=== PATIENT | female | born 1965 | race Caucasian/White ===

== ENCOUNTER 2022-05-17 05:08 | Observation (INO) ==
[2022-05-17 05:41] LABS: BASOPHILS % (AUTO) 0.2 % (0.0-3.0); EOSINOPHILS # (AUTO) 0.2 K/ul (0.0-0.7); EOSINOPHILS % (AUTO) 1.1 % (0.0-7.0); HEMATOCRIT 37.2 % (37.0-47.0); HEMOGLOBIN 12.8 g/dl (12.0-16.0); IMMATURE GRANULOCYTE # (AUTO) 0.1 (0.0-1.0); IMMATURE GRANULOCYTE % (AUTO) 0.8 % (0.0-5.0); LYMPHOCYTES # (AUTO) 0.6 K/uL (0.60-3.4); LYMPHOCYTES % (AUTO) 3.4 (10.0-50.0); MEAN CORPUSCULAR HEMOGLOBIN 29.4 pg (27.0-31.0); MEAN CORPUSCULAR HGB CONC 34.4 (31.8-35.4); MEAN CORPUSCULAR VOLUME 85.3 fl (81.0-99.0); MONOCYTES # (AUTO) 0.6 K/uL (0.4-2.0); MONOCYTES % (AUTO) 3.4 (0-10); NEUTROPHILS # (AUTO) 16.9 K/ul (2.0-6.9); NEUTROPHILS % (AUTO) 91.1 % (42.2-75.2); PLATELET COUNT 265 10^3/uL (140-440); RDW COEFFICIENT OF VARIATION 13.4 % (11.6-14.8); RED BLOOD COUNT 4.36 10^6/ul (4.20-5.40); WHITE BLOOD COUNT 18.47 K/ul (4.6-10.2)
--- NOTE | 2022-05-17 05:43 | ED.PDOC ---
General <DARRICK RODRIGUEZ MD - Last Filed: 05/17/22 05:59> ED Provider: Dr. DARRICK RODRIGUEZ MD Chief Complaint: Abdominal Pain Stated Complaint: Patient presents with a three day history of LLQ abdominal pain. The pain is constant and has progressively worsened. It is a dull, aching pain worsened by movement. It does not radiate. She rates the pain at an 8. Patient has also had fever to 103, nausea, dysuria, frequency and urgency. She had a normal bowel movement yesterday. Denies emesis, diarrhea, hematochezia or hematuria. She does have a history of diverticulitis. Time Seen by Provider: 05/17/22 05:43 Mode of Arrival: Walk-In Information Source: Patient Primary Care Provider: JOSH NOVA Nursing and Triage Documentation Reviewed and Agree: Yes Does patient meet sepsis criteria?: No System Inflammatory Response Syndrome: Not Applicable Sepsis Protocol: For patient's 13 years and over: Temp is 96.8 and below OR 101 and greater Pulse >90 BPM Resp >20/minute Acutely Altered Mental Status Are patient's symptoms suggestive of a new infection, such as: -Pneumonia -Skin, Soft Tissue -Endocarditis -UTI -Bone, Joint Infection -Implantable Device -Acute Abdominal Infection -Wound Infection -Meningitis -Blood Stream Catheter Infection -Unknown <ELIZABETH NAVARRO - Last Filed: 05/17/22 16:33> Exam Limitations: No limitations GI Complaint Exam <DARRICK RODRIGUEZ MD - Last Filed: 05/17/22 05:59> Abdominal Pain Complaint/Exam Onset: Gradual Duration: three day history LLQ pain Symptoms Are: Worse Timing: Constant Initial Severity: Mild Current Severity: Severe Location of Pain: LLQ Character: Reports Dull and Aching Aggravating: Reports Movement Alleviating: Reports None Associated Signs and Symptoms: Reports Fever, Dysuria, Urinary frequency, Decreased appetite and Nausea Related History: Reports Similar episode AAA Risk Factors: Reports None Cardiac Risk Factors: Reports None Surgical Obstruction Risk Factors: Reports None Related Surgical History: Reports None Review of Systems <DARRICK RODRIGUEZ MD - Last Filed: 05/17/22 05:59> Review Of Systems Constitutional: Reports Fever Eyes: Reports No symptoms Ears, Nose, Mouth, Throat: Reports No symptoms Respiratory: Reports No symptoms Cardiac: Reports No symptoms GI: Reports Abdominal pain, Nausea and Poor appetite : Reports Dysuria, Frequency and Urgency Musculoskeletal: Reports No symptoms Skin: Reports No symptoms Neurological: Reports No symptoms Endocrine: Reports No symptoms Hematologic/Lymphatic: Reports No symptoms All Other Systems: Reviewed and Negative PFSH <DARRICK RODRIGUEZ MD - Last Filed: 05/17/22 05:59> Medical History (Updated 05/17/22 @ 10:22 by MELIDA MARTINEZ RN) Abdominal pain delivery delivered DDD (degenerative disc disease), cervical DDD (degenerative disc disease), lumbar DDD (degenerative disc disease), thoracic Diabetes Fibromyalgia Osteoarthritis UTI (urinary tract infection) Family History (Updated 05/17/22 @ 10:25 by MELIDA MARTINEZ RN) FATHER Stomach cancer Social History (Updated 05/17/22 @ 10:25 by MELIDA MARTINEZ RN) Smoking and tobacco status: Never smoker Passive smoking exposure: No Alcohol intake: never Substance use type: does not use Surgical History (Updated 05/17/22 @ 10:22 by MELIDA MARTINEZ RN) H/O spinal fusion H/O: hysterectomy History of cholecystectomy Female Reproductive History Menstrual Hx Hysterectomy: Yes Hx Tubal Ligation: Yes Physical Exam <DARRICK RODRIGUEZ MD - Last Filed: 05/17/22 05:59> Physical Exam Appearance: Reports Ill-appearing and Obese Ill-appearing: Moderate Pain Distress: Moderate Eyes: Reports Not Examined ENT: Reports Nose normal, Oropharynx normal and Dry mucosa Neck: Supple Respiratory: Reports Airway patent, Breath sounds clear and Breath sounds equal Cardiovascular: Reports No rub, No murmur and Tachycardia GI/: Reports Soft, No masses, No Organomegaly and Tender (Moderate tenderness LLQ with some guarding.) Musculoskeletal: Reports Normal strength and No edema Skin: Reports Warm and Dry Neurological: Reports Motor intact, Alert and Oriented Psychiatric: Reports Affect appropriate, Mood appropriate and Anxious <ELIZABETH NAVARRO - Last Filed: 05/17/22 16:33> Radiology Interpretation Radiology Interpretation By: Radiologist Exam Interpreted: CT Scan Xray Comments: no diverticuli or acute abdomen EKG Interpretation Time of EKG #1: 10:04 Rhythm: Sinus Ectopy: None [place]: NL ST Segment: Normal <ELIZABETH NAVARRO - Last Filed: 05/17/22 16:33> Critical Care Note Total Critical Care Time (mins): 20 Comments: discussed with prior cliniican / chart review / pt interview / pt exam / DDX - appears that rose best working dx . Pt not up to discharge / discussed observation startus for additional IV abx tx , lovenox , reassess in am . She agrees with plan . No chest pains , cough , dyspnea Course <DARRICK RODRIGUEZ MD - Last Filed: 05/17/22 05:59> Course Hematology/Chemistry: 05/17/22 05:35 05/17/22 05:35 Orders, Labs, Meds: Lab Review 05/17/22 05/17/22 05/17/22 05:20 05:35 05:35 WBC 18.47 H RBC 4.36 Hgb 12.8 Hct 37.2 MCV 85.3 MCH 29.4 MCHC 34.4 RDW Coeff of Cole 13.4 Plt Count 265 Immature Gran % (Auto) 0.8 Neut % (Auto) 91.1 H Lymph % (Auto) 3.4 L Hettinger % (Auto) 3.4 Eos % (Auto) 1.1 Baso % (Auto) 0.2 Neut # (Auto) 16.9 H Lymph # (Auto) 0.6 Hettinger # (Auto) 0.6 Eos # (Auto) 0.2 Baso # (Auto) 0.0 Immature Gran # (Auto) 0.1 Sodium 137.9 Potassium 3.98 Chloride 99.7 Carbon Dioxide 28.3 Anion Gap 13.88 BUN 25.9 H Creatinine 1.17 Estimated GFR (MDRD) 48.00 BUN/Creatinine Ratio 22.13 Glucose 149.6 H Hemoglobin A1c Lactic Acid Calcium 9.70 Total Bilirubin 0.50 AST 26.3 ALT 15.3 Alkaline Phosphatase 90.6 Total Protein 8.14 Albumin 4.49 Globulin 3.65 Albumin/Globulin Ratio 1.23 Urine Color Yellow Urine Clarity Clear Urine pH 5.5 Ur Specific [place] 1.015 Urine Protein Trace H Urine Glucose (UA) Negative Urine Ketones Negative Urine Blood Negative Urine Nitrite Positive H Urine Bilirubin Negative Urine Urobilinogen 1.0 H Ur Leukocyte Esterase 1+ H Urine Microscopic WBC 10-20 Ur Squamous Epith Cells 10-20 Urine Bacteria 2+ SARS CoV-2 RNA Rapid CAMRON 05/17/22 05/17/22 05/17/22 07:00 08:35 09:02 WBC RBC Hgb Hct MCV MCH MCHC RDW Coeff of Cole Plt Count Immature Gran % (Auto) Neut % (Auto) Lymph % (Auto) [place] % (Auto) Eos % (Auto) Baso % (Auto) Neut # (Auto) Lymph # (Auto) [place] # (Auto) Eos # (Auto) Baso # (Auto) Immature Gran # (Auto) Sodium Potassium Chloride Carbon Dioxide Anion Gap BUN Creatinine Estimated GFR (MDRD) BUN/Creatinine Ratio Glucose Hemoglobin A1c 5.79 Lactic Acid 0.89 Calcium Total Bilirubin AST ALT Alkaline Phosphatase Total Protein Albumin Globulin Albumin/Globulin Ratio Urine Color Urine Clarity Urine pH Ur Specific [place] Urine Protein Urine Glucose (UA) Urine Ketones Urine Blood Urine Nitrite Urine Bilirubin Urine Urobilinogen Ur Leukocyte Esterase Urine Microscopic WBC Ur Squamous Epith Cells Urine Bacteria SARS CoV-2 RNA Rapid CAMRON Negative Orders Category Date Time Status PLACE PATIENT OBSERVATION .TO MEDSURG (NON-MONITORED ADMISSION 05/17/22 08:43 Active BED) EKG-(ED ONLY) Stat CARDIO 05/17/22 09:33 Completed ACTIVITY .Early Mobilization for VTE Prevention CARE 05/17/22 08:43 Active BLOOD GLUCOSE MONITORING (MED/SURG) 0630,1100,1700,2100 CARE 05/17/22 08:46 Active GIVE HS SNACK 2100 CARE 05/17/22 08:46 Active INTAKE & OUTPUT Q8HR CARE 05/17/22 08:43 Active IP: INSERT SALINE LOCK ONCE CARE 05/17/22 08:43 Active NPO REMINDER: IMAGING ONCE CARE 05/17/22 06:26 Completed VITAL SIGNS Q4HR CARE 05/17/22 08:44 Active VITAL SIGNS Q8HR CARE 05/17/22 08:43 Completed ADA 1800 MARLENE. DIET DIETARY 05/17/22 Lunch Ordered HS SNACK DIETARY 05/17/22 Dinner Ordered Saline Lock [ED IV/MEDIPORT/POWERPORT] .ONCE EMERGENCY 05/17/22 05:50 Active BLOOD CULTURE (ED ONLY) Stat LAB 05/17/22 07:00 Received CBC W/ AUTO DIFF DAILY@0600 LAB 05/18/22 06:00 Ordered CBC W/ AUTO DIFF DAILY@0600 LAB 05/19/22 06:00 Ordered CBC W/ AUTO DIFF Stat LAB 05/17/22 05:35 Completed COMPREHENSIVE METABOLIC PANEL DAILY@0600 LAB 05/18/22 06:00 Ordered COMPREHENSIVE METABOLIC PANEL DAILY@0600 LAB 05/19/22 06:00 Ordered COMPREHENSIVE METABOLIC PANEL Stat LAB 05/17/22 05:35 Completed COVID [SARS COV-2 RNA RAPID CAMRON] Stat LAB 05/17/22 09:02 Completed HEMOGLOBIN A1C Routine LAB 05/17/22 08:35 Completed LACTIC ACID Stat LAB 05/17/22 07:00 Completed URINALYSIS C & S IF INDICATED Stat LAB 05/17/22 05:20 Completed URINE CULTURE Stat LAB 05/17/22 05:20 Received 0.9 % Sodium Chloride [Saline Flush] MEDS 05/17/22 05:50 Active 1 syr IVF PRN PRN Acetaminophen [Tylenol] MEDS 05/17/22 08:48 Active 650 mg PO Q4H PRN Duloxetine HCl [Cymbalta] MEDS 05/17/22 09:00 Discontinued 60 mg PO DAILY Enoxaparin Sodium [Lovenox] MEDS 05/17/22 09:00 Active 40 mg SUBCUT DAILY Ketorolac Tromethamine [Toradol] MEDS 05/17/22 05:50 Discontinued 30 mg IVP ONCE STA Ondansetron HCl/Pf [Zofran 4 mg/2 ml] MEDS 05/17/22 05:50 Discontinued 4 mg IVP ONCE STA Piperacillin Sodium/Tazobactam [Zosyn 3.375 gm] 3.375 MEDS 05/17/22 06:48 Discontinued gm 0.9 % Sodium Chloride [Sodium Chloride 100Ml] 100 ml IV ONCE Piperacillin Sodium/Tazobactam [Zosyn 3.375 gm] 3.375 MEDS 05/17/22 12:00 Active gm 0.9 % Sodium Chloride [Sodium Chloride 100Ml] 100 ml IV Q6HR Potassium Chloride [Micro-K Cap] MEDS 05/17/22 09:00 Active 10 meq PO EVERY OTHER DAY Potassium Chloride in 0.9%NaCl [Sodium Chloride 0.9%- MEDS 05/17/22 09:00 Active KCl 20 Meq] 1,000 ml IV 125 mls/hr Pregabalin [Lyrica] MEDS 05/17/22 09:00 Active 75 mg PO TID Ringers Lactated Solution [Lactated Ringers] 1,000 ml MEDS 05/17/22 07:20 Discontinued IV BOLUS Sodium Chloride 0.9% [Sodium Chloride] 1,000 ml MEDS 05/17/22 05:50 Discontinued IV BOLUS Tizanidine HCl [Zanaflex] MEDS 05/17/22 08:54 Active 4 mg PO TID PRN dulaglutide [Trulicity] MEDS 05/17/22 09:00 Active 0.75 mg SUBCUT WEEKLY RESUSCITATION STATUS Routine OTHERS 05/17/22 08:[address] ABDOMEN/PELVIS W CONTRAST Stat RADS 05/17/22 06:26 Completed Medications Generic Name Dose Route Start Last Admin Trade Name Freq PRN Reason Stop Dose Admin Acetaminophen 650 mg 05/17/22 08:48 Acetaminophen 325 Mg Tablet PO Q4H PRN Mild Pain Dextrose 50 ml 05/17/22 12:15 Dextrose 50 % In Water 50 Ml Disp.Syrin IVP ONCE PRN GLUCOSE LESS THAN 70 Duloxetine HCl 60 mg 05/17/22 21:00 Duloxetine Hcl 30 Mg Capsule. PO BEDTIME ALESSANDRA Enoxaparin Sodium 40 mg 05/17/22 09:00 05/17/22 12:31 Enoxaparin Sodium 40 Mg/0.4 Ml Syr SUBCUT 40 mg DAILY ALESSANDRA Administration Potassium Chloride/Sodium Chloride 1,000 mls @ 125 mls/hr 05/17/22 09:00 05/17/22 09:52 Sodium Chloride 0.9%-Kcl 20 Meq IV 125 mls/hr .Q8H ALESSANDRA Administration Piperacillin Sod/Tazobactam 100 mls @ 100 mls/hr 05/17/22 12:00 05/17/22 12:30 Sod 3.375 gm/ Sodium Chloride IV 05/20/22 11:59 100 mls/hr Q6HR ALESSANDRA Administration Ibuprofen 800 mg 05/17/22 15:00 05/17/22 14:08 Ibuprofen 400 Mg Tablet PO 800 mg TID ALESSANDRA Administration Insulin Human Regular 0 unit 05/17/22 12:13 Insulin Regular, Human 100 Unit/Ml (3ml) Vial SUBCUT PRN PRN Hyperglycemia Protocol Non-Formulary Medication 0.75 mg 05/17/22 09:00 05/17/22 12:31 Dulaglutide [Trulicity] SUBCUT 0.75 mg WEEKLY ALESSANDRA Administration Potassium Chloride 10 meq 05/17/22 09:00 05/17/22 12:27 Potassium Chloride 10 Meq Capsule.Er PO Not Given EVERY OTHER DAY ALESSANDRA Pregabalin 75 mg 05/17/22 09:00 05/17/22 14:08 Pregabalin 75 Mg Capsule PO 75 mg TID ALESSANDRA Administration Rosuvastatin Calcium 10 mg 05/17/22 12:30 05/17/22 12:30 Rosuvastatin Calcium 10 Mg Tablet PO 10 mg DAILY ALESSANDRA Administration Sodium Chloride 1 syr 05/17/22 05:50 0.9% Sodium Chloride 10 Ml Disp.Syrin IVF PRN PRN To flush IV Tizanidine HCl 4 mg 05/17/22 08:54 Tizanidine Hcl 4 Mg Tablet PO TID PRN muscle spasm Discontinued Medications Generic Name Dose Route Start Last Admin Trade Name Freq PRN Reason Stop Dose Admin Duloxetine HCl 60 mg 05/17/22 09:00 05/17/22 12:25 Duloxetine Hcl 30 Mg Capsule. PO Not Given DAILY ALESSANDRA Sodium Chloride 1,000 mls @ 1,000 mls/hr 05/17/22 05:50 05/17/22 06:05 Sodium Chloride IV 05/17/22 06:49 1,000 mls/hr BOLUS STA Administration Piperacillin Sod/Tazobactam 100 mls @ 100 mls/hr 05/17/22 06:48 05/17/22 06:55 Sod 3.375 gm/ Sodium Chloride IV 05/17/22 07:47 100 mls/hr ONCE STA Administration Lactated Ringer's 1,000 mls @ 1,000 mls/hr 05/17/22 07:20 05/17/22 07:32 Lactated Ringers IV 05/17/22 08:19 1,000 mls/hr BOLUS STA Administration Ketorolac Tromethamine 30 mg 05/17/22 05:50 05/17/22 06:05 Ketorolac Tromethamine 30 Mg/Ml Vial IVP 05/17/22 05:51 30 mg ONCE STA Administration Ondansetron HCl 4 mg 05/17/22 05:50 05/17/22 06:05 Ondansetron Hcl/Pf 4 Mg/2 Ml Sdv IVP 05/17/22 05:51 4 mg ONCE STA Administration Vital Signs: Temp Pulse Resp BP Pulse Ox 05/17/22 09:10 85 16 106/64 95 05/17/22 05:11 96.7 F L 111 H 20 103/61 95 <ELIZABETH NAVARRO - Last Filed: 05/17/22 16:33> Course Orders, Labs, Meds: Lab Review 05/17/22 05/17/22 05/17/22 05:20 05:35 05:35 WBC 18.47 H RBC 4.36 Hgb 12.8 Hct 37.2 MCV 85.3 MCH 29.4 MCHC 34.4 RDW Coeff of Cole 13.4 Plt Count 265 Immature Gran % (Auto) 0.8 Neut % (Auto) 91.1 H Lymph % (Auto) 3.4 L [place] % (Auto) 3.4 Eos % (Auto) 1.1 Baso % (Auto) 0.2 Neut # (Auto) 16.9 H Lymph # (Auto) 0.6 [place] # (Auto) 0.6 Eos # (Auto) 0.2 Baso # (Auto) 0.0 Immature Gran # (Auto) 0.1 Sodium 137.9 Potassium 3.98 Chloride 99.7 Carbon Dioxide 28.3 Anion Gap 13.88 BUN 25.9 H Creatinine 1.17 Estimated GFR (MDRD) 48.00 BUN/Creatinine Ratio 22.13 Glucose 149.6 H Hemoglobin A1c Lactic Acid Calcium 9.70 Total Bilirubin 0.50 AST 26.3 ALT 15.3 Alkaline Phosphatase 90.6 Total Protein 8.14 Albumin 4.49 Globulin 3.65 Albumin/Globulin Ratio 1.23 Urine Color Yellow Urine Clarity Clear Urine pH 5.5 Ur Specific [place] 1.015 Urine Protein Trace H Urine Glucose (UA) Negative Urine Ketones Negative Urine Blood Negative Urine Nitrite Positive H Urine Bilirubin Negative Urine Urobilinogen 1.0 H Ur Leukocyte Esterase 1+ H Urine Microscopic WBC 10-20 Ur Squamous Epith Cells 10-20 Urine Bacteria 2+ SARS CoV-2 RNA Rapid CAMRON 05/17/22 05/17/22 05/17/22 07:00 08:35 09:02 WBC RBC Hgb Hct MCV MCH MCHC RDW Coeff of Cole Plt Count Immature Gran % (Auto) Neut % (Auto) Lymph % (Auto) [place] % (Auto) Eos % (Auto) Baso % (Auto) Neut # (Auto) Lymph # (Auto) [place] # (Auto) Eos # (Auto) Baso # (Auto) Immature Gran # (Auto) Sodium Potassium Chloride Carbon Dioxide Anion Gap BUN Creatinine Estimated GFR (MDRD) BUN/Creatinine Ratio Glucose Hemoglobin A1c 5.79 Lactic Acid 0.89 Calcium Total Bilirubin AST ALT Alkaline Phosphatase Total Protein Albumin Globulin Albumin/Globulin Ratio Urine Color Urine Clarity Urine pH Ur Specific [place] Urine Protein Urine Glucose (UA) Urine Ketones Urine Blood Urine Nitrite Urine Bilirubin Urine Urobilinogen Ur Leukocyte Esterase Urine Microscopic WBC Ur Squamous Epith Cells Urine Bacteria SARS CoV-2 RNA Rapid CAM[place] Negative Orders Category Date Time Status PLACE PATIENT OBSERVATION .TO MEDSURG (NON-MONITORED ADMISSION 05/17/22 08:43 Active BED) EKG-(ED ONLY) Stat CARDIO 05/17/22 09:33 Completed ACTIVITY .Early Mobilization for VTE Prevention CARE 05/17/22 08:43 Active BLOOD GLUCOSE MONITORING (MED/SURG) 0630,1100,1700,2100 CARE 05/17/22 08:46 Active GIVE HS SNACK 2100 CARE 05/17/22 08:46 Active INTAKE & OUTPUT Q8HR CARE 05/17/22 08:43 Active IP: INSERT SALINE LOCK ONCE CARE 05/17/22 08:43 Active NPO REMINDER: IMAGING ONCE CARE 05/17/22 06:26 Completed VITAL SIGNS Q4HR CARE 05/17/22 08:44 Active VITAL SIGNS Q8HR CARE 05/17/22 08:43 Completed ADA 1800 MARLENE. DIET DIETARY 05/17/22 Lunch Ordered HS SNACK DIETARY 05/17/22 Dinner Ordered Saline Lock [ED IV/MEDIPORT/POWERPORT] .ONCE EMERGENCY 05/17/22 05:50 Active BLOOD CULTURE (ED ONLY) Stat LAB 05/17/22 07:00 Received CBC W/ AUTO DIFF DAILY@0600 LAB 05/18/22 06:00 Ordered CBC W/ AUTO DIFF DAILY@0600 LAB 05/19/22 06:00 Ordered CBC W/ AUTO DIFF Stat LAB 05/17/22 05:35 Completed COMPREHENSIVE METABOLIC PANEL DAILY@0600 LAB 05/18/22 06:00 Ordered COMPREHENSIVE METABOLIC PANEL DAILY@0600 LAB 05/19/22 06:00 Ordered COMPREHENSIVE METABOLIC PANEL Stat LAB 05/17/22 05:35 Completed COVID [SARS COV-2 RNA RAPID CAMRON] Stat LAB 05/17/22 09:02 Completed HEMOGLOBIN A1C Routine LAB 05/17/22 08:35 Completed LACTIC ACID Stat LAB 05/17/22 07:00 Completed URINALYSIS C & S IF INDICATED Stat LAB 05/17/22 05:20 Completed URINE CULTURE Stat LAB 05/17/22 05:20 Received 0.9 % Sodium Chloride [Saline Flush] MEDS 05/17/22 05:50 Active 1 syr IVF PRN PRN Acetaminophen [Tylenol] MEDS 05/17/22 08:48 Active 650 mg PO Q4H PRN Duloxetine HCl [Cymbalta] MEDS 05/17/22 09:00 Discontinued 60 mg PO DAILY Enoxaparin Sodium [Lovenox] MEDS 05/17/22 09:00 Active 40 mg SUBCUT DAILY Ketorolac Tromethamine [Toradol] MEDS 05/17/22 05:50 Discontinued 30 mg IVP ONCE STA Ondansetron HCl/Pf [Zofran 4 mg/2 ml] MEDS 05/17/22 05:50 Discontinued 4 mg IVP ONCE STA Piperacillin Sodium/Tazobactam [Zosyn 3.375 gm] 3.375 MEDS 05/17/22 06:48 Discontinued gm 0.9 % Sodium Chloride [Sodium Chloride 100Ml] 100 ml IV ONCE Piperacillin Sodium/Tazobactam [Zosyn 3.375 gm] 3.375 MEDS 05/17/22 12:00 Active gm 0.9 % Sodium Chloride [Sodium Chloride 100Ml] 100 ml IV Q6HR Potassium Chloride [Micro-K Cap] MEDS 05/17/22 09:00 Active 10 meq PO EVERY OTHER DAY Potassium Chloride in 0.9%NaCl [Sodium Chloride 0.9%- MEDS 05/17/22 09:00 Active KCl 20 Meq] 1,000 ml IV 125 mls/hr Pregabalin [Lyrica] MEDS 05/17/22 09:00 Active 75 mg PO TID Ringers Lactated Solution [Lactated Ringers] 1,000 ml MEDS 05/17/22 07:20 Discontinued IV BOLUS Sodium Chloride 0.9% [Sodium Chloride] 1,000 ml MEDS 05/17/22 05:50 Discontinued IV BOLUS Tizanidine HCl [Zanaflex] MEDS 05/17/22 08:54 Active 4 mg PO TID PRN dulaglutide [Trulicity] MEDS 05/17/22 09:00 Active 0.75 mg SUBCUT WEEKLY RESUSCITATION STATUS Routine OTHERS 05/17/22 08:[address] ABDOMEN/PELVIS W CONTRAST Stat RADS 05/17/22 06:26 Completed Medications Generic Name Dose Route Start Last Admin Trade Name Freq PRN Reason Stop Dose Admin Acetaminophen 650 mg 05/17/22 08:48 Acetaminophen 325 Mg Tablet PO Q4H PRN Mild Pain Dextrose 50 ml 05/17/22 12:15 Dextrose 50 % In Water 50 Ml Disp.Syrin IVP ONCE PRN GLUCOSE LESS THAN 70 Duloxetine HCl 60 mg 05/17/22 21:00 Duloxetine Hcl 30 Mg Capsule.Dr PO BEDTIME ALESSANDRA Enoxaparin Sodium 40 mg 05/17/22 09:00 05/17/22 12:31 Enoxaparin Sodium 40 Mg/0.4 Ml Syr SUBCUT 40 mg DAILY ALESSANDRA Administration Potassium Chloride/Sodium Chloride 1,000 mls @ 125 mls/hr 05/17/22 09:00 05/17/22 09:52 Sodium Chloride 0.9%-Kcl 20 Meq IV 125 mls/hr .Q8H ALESSANDRA Administration Piperacillin Sod/Tazobactam 100 mls @ 100 mls/hr 05/17/22 12:00 05/17/22 12:30 Sod 3.375 gm/ Sodium Chloride IV 05/20/22 11:59 100 mls/hr Q6HR ALESSANDRA Administration Ibuprofen 800 mg 05/17/22 15:00 05/17/22 14:08 Ibuprofen 400 Mg Tablet PO 800 mg TID ALESSANDRA Administration Insulin Human Regular 0 unit 05/17/22 12:13 Insulin Regular, Human 100 Unit/Ml (3ml) Vial SUBCUT PRN PRN Hyperglycemia Protocol Non-Formulary Medication 0.75 mg 05/17/22 09:00 05/17/22 12:31 Dulaglutide [Trulicity] SUBCUT 0.75 mg WEEKLY ALESSANDRA Administration Potassium Chloride 10 meq 05/17/22 09:00 05/17/22 12:27 Potassium Chloride 10 Meq Capsule.Er PO Not Given EVERY OTHER DAY [facility] Pregabalin 75 mg 05/17/22 09:00 05/17/22 14:08 Pregabalin 75 Mg Capsule PO 75 mg TID ALESSANDRA Administration Rosuvastatin Calcium 10 mg 05/17/22 12:30 05/17/22 12:30 Rosuvastatin Calcium 10 Mg Tablet PO 10 mg DAILY ALESSANDRA Administration Sodium Chloride 1 syr 05/17/22 05:50 0.9% Sodium Chloride 10 Ml Disp.Syrin IVF PRN PRN To flush IV Tizanidine HCl 4 mg 05/17/22 08:54 Tizanidine Hcl 4 Mg Tablet PO TID PRN muscle spasm Discontinued Medications Generic Name Dose Route Start Last Admin Trade Name Tanya PRN Reason Stop Dose Admin Duloxetine HCl 60 mg 05/17/22 09:00 05/17/22 12:25 Duloxetine Hcl 30 Mg Capsule. PO Not Given DAILY ALESSANDRA Sodium Chloride 1,000 mls @ 1,000 mls/hr 05/17/22 05:50 05/17/22 06:05 Sodium Chloride IV 05/17/22 06:49 1,000 mls/hr BOLUS STA Administration Piperacillin Sod/Tazobactam 100 mls @ 100 mls/hr 05/17/22 06:48 05/17/22 06:55 Sod 3.375 gm/ Sodium Chloride IV 05/17/22 07:47 100 mls/hr ONCE STA Administration Lactated Ringer's 1,000 mls @ 1,000 mls/hr 05/17/22 07:20 05/17/22 07:32 Lactated Ringers IV 05/17/22 08:19 1,000 mls/hr BOLUS STA Administration Ketorolac Tromethamine 30 mg 05/17/22 05:50 05/17/22 06:05 Ketorolac Tromethamine 30 Mg/Ml Vial IVP 05/17/22 05:51 30 mg ONCE STA Administration Ondansetron HCl 4 mg 05/17/22 05:50 05/17/22 06:05 Ondansetron Hcl/Pf 4 Mg/2 Ml Sdv IVP 05/17/22 05:51 4 mg ONCE STA Administration Vital Signs: Temp Pulse Resp BP Pulse Ox 05/17/22 09:10 85 16 106/64 95 05/17/22 05:11 96.7 F L 111 H 20 103/61 95 Discharge Plan Discharge Patient Disposition: PLACED OBSERVATION Discharge Problem: Pyelonephritis 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
[2022-05-17] MEDS ORDERED: ZOFRAN 4 MG/2 ML IVP STA (05:50)
[2022-05-17] MEDS ORDERED: SODIUM CHLORIDE 1,000 ML IV STA (05:50)
[2022-05-17] MEDS ORDERED: TORADOL IVP STA (05:50)
[2022-05-17 05:52] LABS: ALANINE AMINOTRANSFERASE 15.3 U/L (0-35); ALBUMIN 4.49 g/dL (3.5-5.0); ALKALINE PHOSPHATASE 90.6 U/L (38-126); ASPARTATE AMINO TRANSFERASE 26.3 U/L (14-36); BILIRUBIN,TOTAL 0.5 mg/dL (0.2-1.3); BLOOD UREA NITROGEN 25.9 mg/dL (7-17); CALCIUM 9.7 mg/dL (8.4-10.2); CARBON DIOXIDE 28.3 mmol/L (22-30.0); CHLORIDE 99.7 mmol/L (98-107); CREATININE 1.17 mg/dL (0.60-1.30); GLUCOSE 149.6 mg/dL (74-106); POTASSIUM 3.98 mmol/L (3.5-5.1); SODIUM 137.9 mmol/L (134.5-145); TOTAL PROTEIN 8.14 g/dL (6.3-8.2)
[2022-05-17] MEDS ORDERED: ZOSYN 3.375 GM 3.375 GM in SODIUM CHLORIDE 100ML 100 ML IV STA (06:48)
--- NOTE | 2022-05-17 07:05 | CT ---
EXAM: CT scan abdomen pelvis with contrast HISTORY: Left lower quadrant pain COMPARISON: CT scan abdomen pelvis 02/04/2022 FINDINGS: Postcontrast helical imaging was obtained through the abdomen pelvis utilizing 2.5-mm karel imation. Sagittal and coronal reconstructions were imaged and reviewed.. The visualized lung base ar e clear. There is mild thickening of the distal esophagus which may be related to reflux. There has been prior cholecystectomy. The right lobe of liver is enlarged which may represent normal variant .. The pancreas, spleen and adrenal glands have normal enhanced CT appearance. The kidneys excrete contrast in a normal fashion bilaterally. Atherosclerotic changes are seen involving the aorta witho ut aneurysm There is a normal retrocecal appendix.. There has been prior hysterectomy. The bladder s mall volumed limiting evaluation. No evidence of diverticulitis. There is no free fluid. Postopera tive changes are noted within the lower lumbar spine. IMPRESSION: No acute intra-abdominal findings. Status post cholecystectomy and hysterectomy. No free fluid or inflammatory changes. All CT scans are performed using dose optimization techniques as appropriate to the performed exam an d include at least one of the following: Automated exposure control, adjustment of the mA and/or kV according t o size, and the use of iterative reconstruction technique.
[2022-05-17 07:07] LABS: BILIRUBIN,URINE Negative (NEGATIVE); CLARITY,URINE Clear (CLEAR); COLOR,URINE Yellow (YELLOW); GLUCOSE, URINE (UA) Negative (NEGATIVE); KETONES,URINE Negative (NEGATIVE); LEUKOCYTE ESTERASE ,URINE 1+ (NEGATIVE); NITRITE,URINE Positive (NEGATIVE); PH,URINE 5.5 (5-9); PROTEIN,URINE Trace (NEGATIVE); URINE, BLOOD Negative (NEGATIVE)
[2022-05-17] MEDS ORDERED: LACTATED RINGERS 1,000 ML IV STA (07:20)
[2022-05-17 08:02] LABS: BACTERIA,URINE 2+ (NOT PRESENT)
[2022-05-17] MEDS ORDERED: TYLENOL PO PRN (08:48)
[2022-05-17] MEDS ORDERED: ZANAFLEX PO PRN (08:54)
[2022-05-17] MEDS ORDERED: CYMBALTA PO SCH ×2 (09:00→21:00)
[2022-05-17] MEDS ORDERED: MICRO-K CAP PO SCH (09:00)
[2022-05-17] MEDS: SODIUM CHLORIDE 0.9%-KCL 20 MEQ 1,000 ML IV SCH ×2 (09:52→17:19)
[2022-05-17 10:35] VITALS: BMI 45.3
[2022-05-17] MEDS ORDERED: HUMULIN R SUBCUT PRN (12:13)
[2022-05-17] MEDS ORDERED: DEXTROSE 50%-WATER ABBOJECT IVP PRN (12:15)
[2022-05-17] MEDS: LYRICA PO SCH ×3 (12:28→20:56)
[2022-05-17] MEDS: ZOSYN 3.375 GM 3.375 GM in SODIUM CHLORIDE 100ML 100 ML IV SCH ×3 (12:30→23:58)
[2022-05-17] MEDS: CRESTOR PO SCH (12:30)
[2022-05-17] MEDS: LOVENOX SUBCUT SCH (12:31)
[2022-05-17] MEDS: MOTRIN PO SCH ×2 (14:08→20:56)
--- NOTE | 2022-05-17 17:38 | PCM ---
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 Curerently no air hunger ) Gastrointestinal: Reports Abdominal pain and Nausea Genitourinary: Reports frequency and other (urgency ) Neurological: Reports No symptoms Musculoskeletal: Reports Other (fibromyalgia pains ) Skin: Reports No symptoms Endocrine: Reports No symptoms Allergies Allergies Allergy/AdvReac Type Severity Reaction Status Date / Time No Known Allergies Allergy Verified 05/17/22 05:15 PFSH Medical History (Updated 05/17/22 @ 10:22 by MELIDA MARTINEZ RN) Abdominal pain delivery delivered DDD (degenerative disc disease), cervical DDD (degenerative disc disease), lumbar DDD (degenerative disc disease), thoracic Diabetes Fibromyalgia Osteoarthritis UTI (urinary tract infection) Surgical History (Updated 05/17/22 @ 10:22 by MELIDA MARTINEZ RN) H/O spinal fusion H/O: hysterectomy History of cholecystectomy Family History (Updated 05/17/22 @ 10:25 by MELIDA MARTINEZ RN) FATHER Stomach cancer Social History (Updated 05/17/22 @ 10:25 by MELIDA MARTINEZ RN) Smoking and tobacco status: Never smoker Passive smoking exposure: No Alcohol intake: never Substance use type: does not use Medications Medications: Medications Generic Name Dose Route Start Last Admin Trade Name Freq PRN Reason Stop Dose Admin Acetaminophen 650 mg 05/17/22 08:48 Acetaminophen 325 Mg Tablet PO Q4H PRN Mild Pain Dextrose 50 ml 05/17/22 12:15 Dextrose 50 % In Water 50 Ml Disp.Syrin IVP ONCE PRN GLUCOSE LESS THAN 70 Duloxetine HCl 60 mg 05/17/22 21:00 Duloxetine Hcl 30 Mg Capsule.Dr PO BEDTIME ALESSANDRA Enoxaparin Sodium 40 mg 05/17/22 09:00 05/17/22 12:31 Enoxaparin Sodium 40 Mg/0.4 Ml Syr SUBCUT 40 mg DAILY ALESSANDRA Administration Potassium Chloride/Sodium Chloride 1,000 mls @ 125 mls/hr 05/17/22 09:00 05/17/22 17:19 Sodium Chloride 0.9%-Kcl 20 Meq IV 125 mls/hr .Q8H ALESSANDRA Administration Piperacillin Sod/Tazobactam 100 mls @ 100 mls/hr 05/17/22 12:00 05/17/22 17:06 Sod 3.375 gm/ Sodium Chloride IV 05/20/22 11:59 100 mls/hr Q6HR ALESSANDRA Administration Ibuprofen 800 mg 05/17/22 15:00 05/17/22 14:08 Ibuprofen 400 Mg Tablet PO 800 mg TID ALESSANDRA Administration Insulin Human Regular 0 unit 05/17/22 12:13 Insulin Regular, Human 100 Unit/Ml (3ml) Vial SUBCUT PRN PRN Hyperglycemia Protocol Non-Formulary Medication 0.75 mg 05/17/22 09:00 05/17/22 12:31 Dulaglutide [Trulicity] SUBCUT 0.75 mg WEEKLY ALESSANDRA Administration Potassium Chloride 10 meq 05/17/22 09:00 05/17/22 12:27 Potassium Chloride 10 Meq Capsule.Er PO Not Given EVERY OTHER DAY ALESSANDRA Pregabalin 75 mg 05/17/22 09:00 05/17/22 14:08 Pregabalin 75 Mg Capsule PO 75 mg TID ALESSANDRA Administration Rosuvastatin Calcium 10 mg 05/17/22 12:30 05/17/22 12:30 Rosuvastatin Calcium 10 Mg Tablet PO 10 mg DAILY ALESSANDRA Administration Sodium Chloride 1 syr 05/17/22 05:50 0.9% Sodium Chloride 10 Ml Disp.Syrin IVF PRN PRN To flush IV Tizanidine HCl 4 mg 05/17/22 08:54 Tizanidine Hcl 4 Mg Tablet PO TID PRN muscle spasm Body Composition Height: 5 ft 4 in Weight: 264 lb 4 oz Body Mass Index (BMI): 45.3 Vital Signs Temperature: 97.9 F Pulse Rate: 92 Respiratory Rate: 16 Blood Pressure: 116/76 O2 Sat by Pulse Oximetry: 92 Physical Examination Appearance: Reports Well-appearing and Obese Ill-appearing: Mild Pain Distress: Mild Eyes: Reports DIMAS, EOMI and Conjunctiva clear ENT: Reports Ears normal and Nose normal Neck: Supple Respiratory: Reports Airway patent, Breath sounds clear and Breath sounds equal Cardiovascular: Reports RRR, Pulses normal and No murmur GI/: Reports Bowel sounds normal Musculoskeletal: Reports Normal strength, ROM intact, No edema and No calf t enderness Skin: Reports Warm, Dry and Normal color Neurological: Reports Sensation intact, Motor intact, Alert and Oriented Psychiatric: Reports Affect appropriate and Mood appropriate Lab/Tests/Diagnostic Imaging Lab/Tests/Diagnostic Imaging: Lab Review 05/17/22 05/17/22 05/17/22 05:20 05:35 05:35 WBC 18.47 H RBC 4.36 Hgb 12.8 Hct 37.2 MCV 85.3 MCH 29.4 MCHC 34.4 RDW Coeff of Cole 13.4 Plt Count 265 Immature Gran % (Auto) 0.8 Neut % (Auto) 91.1 H Lymph % (Auto) 3.4 L [facility] % (Auto) 3.4 Eos % (Auto) 1.1 Baso % (Auto) 0.2 Neut # (Auto) 16.9 H Lymph # (Auto) 0.6 [facility] # (Auto) 0.6 Eos # (Auto) 0.2 Baso # (Auto) 0.0 Immature Gran # (Auto) 0.1 Sodium 137.9 Potassium 3.98 Chloride 99.7 Carbon Dioxide 28.3 Anion Gap 13.88 BUN 25.9 H Creatinine 1.17 Estimated GFR (MDRD) 48.00 BUN/Creatinine Ratio 22.13 Glucose 149.6 H Hemoglobin A1c Lactic Acid Calcium 9.70 Total Bilirubin 0.50 AST 26.3 ALT 15.3 Alkaline Phosphatase 90.6 Total Protein 8.14 Albumin 4.49 Globulin 3.65 Albumin/Globulin Ratio 1.23 Urine Color Yellow Urine Clarity Clear Urine pH 5.5 Ur Specific Murray 1.015 Urine Protein Trace H Urine Glucose (UA) Negative Urine Ketones Negative Urine Blood Negative Urine Nitrite Positive H Urine Bilirubin Negative Urine Urobilinogen 1.0 H Ur Leukocyte Esterase 1+ H Urine Microscopic WBC 10-20 Ur Squamous Epith Cells 10-20 Urine Bacteria 2+ SARS CoV-2 RNA Rapid CAMRON 05/17/22 05/17/22 05/17/22 07:00 08:35 09:02 WBC RBC Hgb Hct MCV MCH MCHC RDW Coeff of Cole Plt Count Immature Gran % (Auto) Neut % (Auto) Lymph % (Auto) [facility] % (Auto) Eos % (Auto) Baso % (Auto) Neut # (Auto) Lymph # (Auto) [facility] # (Auto) Eos # (Auto) Baso # (Auto) Immature Gran # (Auto) Sodium Potassium Chloride Carbon Dioxide Anion Gap BUN Creatinine Estimated GFR (MDRD) BUN/Creatinine Ratio Glucose Hemoglobin A1c 5.79 Lactic Acid 0.89 Calcium Total Bilirubin AST ALT Alkaline Phosphatase Total Protein Albumin Globulin Albumin/Globulin Ratio Urine Color Urine Clarity Urine pH Ur Specific Murray Urine Protein Urine Glucose (UA) Urine Ketones Urine Blood Urine Nitrite Urine Bilirubin Urine Urobilinogen Ur Leukocyte Esterase Urine Microscopic WBC Ur Squamous Epith Cells Urine Bacteria SARS CoV-2 RNA Rapid CAMRON Negative Orders Category Date Time Status PLACE PATIENT OBSERVATION .TO MEDSURG (NON-MONITORED ADMISSION 05/17/22 08:43 Active BED) EKG-(ED ONLY) Stat CARDIO 05/17/22 09:33 Completed ACTIVITY .Early Mobilization for VTE Prevention CARE 05/17/22 08:43 Active BLOOD GLUCOSE MONITORING (MED/SURG) 0630,1100,1700,2100 CARE 05/17/22 08:46 Active GIVE HS SNACK 2100 CARE 05/17/22 08:46 Active INTAKE & OUTPUT Q8HR CARE 05/17/22 08:43 Active IP: INSERT SALINE LOCK ONCE CARE 05/17/22 08:43 Active NPO REMINDER: IMAGING ONCE CARE 05/17/22 06:26 Completed NPO REMINDER: LAB TEST 0000 CARE 05/17/22 16:58 Active VITAL SIGNS Q4HR CARE 05/17/22 08:44 Active VITAL SIGNS Q8HR CARE 05/17/22 08:43 Completed ADA 1800 MARLENE. DIET DIETARY 05/17/22 Lunch Ordered HS SNACK DIETARY 05/17/22 Dinner Ordered CONSULT CREDENTIALING COORDINATOR ONCE CREDENTIALING COORDINATOR 05/17/22 10:35 Active Saline Lock [ED IV/MEDIPORT/POWERPORT] .ONCE EMERGENCY 05/17/22 05:50 Active BLOOD CULTURE (ED ONLY) Stat LAB 05/17/22 07:00 Received BNP [NT-PROBNP] Stat LAB 05/17/22 Ordered CBC W/ AUTO DIFF DAILY@0600 LAB 05/18/22 06:00 Ordered CBC W/ AUTO DIFF DAILY@0600 LAB 05/19/22 06:00 Ordered CBC W/ AUTO DIFF Stat LAB 05/17/22 05:35 Completed COMPREHENSIVE METABOLIC PANEL DAILY@0600 LAB 05/18/22 06:00 Ordered COMPREHENSIVE METABOLIC PANEL DAILY@0600 LAB 05/19/22 06:00 Ordered COMPREHENSIVE METABOLIC PANEL Stat LAB 05/17/22 05:35 Completed COVID [SARS COV-2 RNA RAPID CAMRON] Stat LAB 05/17/22 09:02 Completed D-DIMER Stat LAB 05/17/22 Ordered HEMOGLOBIN A1C Routine LAB 05/17/22 08:35 Completed LACTIC ACID Stat LAB 05/17/22 07:00 Completed LIPID PANEL Timed LAB 05/18/22 06:00 Ordered MAGNESIUM Stat LAB 05/17/22 16:55 Ordered PROCALCITONIN Stat LAB 05/17/22 Ordered TROPONIN I Stat LAB 05/17/22 16:55 Ordered URINALYSIS C & S IF INDICATED Stat LAB 05/17/22 05:20 Completed URINE CULTURE Stat LAB 05/17/22 05:20 Received 0.9 % Sodium Chloride [Saline Flush] MEDS 05/17/22 05:50 Active 1 syr IVF PRN PRN Acetaminophen [Tylenol] MEDS 05/17/22 08:48 Active 650 mg PO Q4H PRN Dextrose 50 % in Water [Dextrose 50%-Water Abboject] MEDS 05/17/22 12:15 Active 50 ml IVP ONCE PRN Duloxetine HCl [Cymbalta] MEDS 05/17/22 21:00 Active 60 mg PO BEDTIME Duloxetine HCl [Cymbalta] MEDS 05/17/22 09:00 Discontinued 60 mg PO DAILY Enoxaparin Sodium [Lovenox] MEDS 05/17/22 09:00 Active 40 mg SUBCUT DAILY Ibuprofen [Motrin] MEDS 05/17/22 15:00 Active 800 mg PO TID Insulin Regular, Human [Humulin R] MEDS 05/17/22 12:13 Active See Protocol SUBCUT PRN PRN Ketorolac Tromethamine [Toradol] MEDS 05/17/22 05:50 Discontinued 30 mg IVP ONCE STA Ondansetron HCl/Pf [Zofran 4 mg/2 ml] MEDS 05/17/22 05:50 Discontinued 4 mg IVP ONCE STA Piperacillin Sodium/Tazobactam [Zosyn 3.375 gm] 3.375 MEDS 05/17/22 06:48 Discontinued gm 0.9 % Sodium Chloride [Sodium Chloride 100Ml] 100 ml IV ONCE Piperacillin Sodium/Tazobactam [Zosyn 3.375 gm] 3.375 MEDS 05/17/22 12:00 Active gm 0.9 % Sodium Chloride [Sodium Chloride 100Ml] 100 ml IV Q6HR Potassium Chloride [Micro-K Cap] MEDS 05/17/22 09:00 Active 10 meq PO EVERY OTHER DAY Potassium Chloride in 0.9%NaCl [Sodium Chloride 0.9%- MEDS 05/17/22 09:00 Active KCl 20 Meq] 1,000 ml IV 125 mls/hr Pregabalin [Lyrica] MEDS 05/17/22 09:00 Active 75 mg PO TID Ringers Lactated Solution [Lactated Ringers] 1,000 ml MEDS 05/17/22 07:20 Discontinued IV BOLUS Rosuvastatin Calcium [Crestor] MEDS 05/17/22 12:30 Active 10 mg PO DAILY Sodium Chloride 0.9% [Sodium Chloride] 1,000 ml MEDS 05/17/22 05:50 Discontinued IV BOLUS Tizanidine HCl [Zanaflex] MEDS 05/17/22 08:54 Active 4 mg PO TID PRN dulaglutide [Trulicity] MEDS 05/17/22 09:00 Active 0.75 mg SUBCUT WEEKLY RESUSCITATION STATUS Routine OTHERS 05/17/22 08:43 Ordered CHEST, 1V AP ONLY Stat RADS 05/17/22 16:[address] ABDOMEN/PELVIS W CONTRAST Stat RADS 05/17/22 06:26 Completed Medications Generic Name Dose Route Start Last Admin Trade Name Freq PRN Reason Stop Dose Admin Acetaminophen 650 mg 05/17/22 08:48 Acetaminophen 325 Mg Tablet PO Q4H PRN Mild Pain Dextrose 50 ml 05/17/22 12:15 Dextrose 50 % In Water 50 Ml Disp.Syrin IVP ONCE PRN GLUCOSE LESS THAN 70 Duloxetine HCl 60 mg 05/17/22 21:00 Duloxetine Hcl 30 Mg Capsule. PO BEDTIME ALESSANDRA Enoxaparin Sodium 40 mg 05/17/22 09:00 05/17/22 12:31 Enoxaparin Sodium 40 Mg/0.4 Ml Syr SUBCUT 40 mg DAILY ALESSANDRA Administration Potassium Chloride/Sodium Chloride 1,000 mls @ 125 mls/hr 05/17/22 09:00 05/17/22 17:19 Sodium Chloride 0.9%-Kcl 20 Meq IV 125 mls/hr .Q8H ALESSANDRA Administration Piperacillin Sod/Tazobactam 100 mls @ 100 mls/hr 05/17/22 12:00 05/17/22 17:06 Sod 3.375 gm/ Sodium Chloride IV 05/20/22 11:59 100 mls/hr Q6HR ALESSANDRA Administration Ibuprofen 800 mg 05/17/22 15:00 05/17/22 14:08 Ibuprofen 400 Mg Tablet PO 800 mg TID ALESSANDRA Administration Insulin Human Regular 0 unit 05/17/22 12:13 Insulin Regular, Human 100 Unit/Ml (3ml) Vial SUBCUT PRN PRN Hyperglycemia Protocol Non-Formulary Medication 0.75 mg 05/17/22 09:00 05/17/22 12:31 Dulaglutide [Trulicity] SUBCUT 0.75 mg WEEKLY ALESSANDRA Administration Potassium Chloride 10 meq 05/17/22 09:00 05/17/22 12:27 Potassium Chloride 10 Meq Capsule.Er PO Not Given EVERY OTHER DAY ALESSANDRA Pregabalin 75 mg 05/17/22 09:00 05/17/22 14:08 Pregabalin 75 Mg Capsule PO 75 mg TID ALESSANDRA Administration Rosuvastatin Calcium 10 mg 05/17/22 12:30 05/17/22 12:30 Rosuvastatin Calcium 10 Mg Tablet PO 10 mg DAILY ALESSANDRA Administration Sodium Chloride 1 syr 05/17/22 05:50 0.9% Sodium Chloride 10 Ml Disp.Syrin IVF PRN PRN To flush IV Tizanidine HCl 4 mg 05/17/22 08:54 Tizanidine Hcl 4 Mg Tablet PO TID PRN muscle spasm Discontinued Medications Generic Name Dose Route Start Last Admin Trade Name Freq PRN Reason Stop Dose Admin Duloxetine HCl 60 mg 05/17/22 09:00 05/17/22 12:25 Duloxetine Hcl 30 Mg Capsule.Dr PO Not Given DAILY ALESSANDRA Sodium Chloride 1,000 mls @ 1,000 mls/hr 05/17/22 05:50 05/17/22 06:05 Sodium Chloride IV 05/17/22 06:49 1,000 mls/hr BOLUS STA Administration Piperacillin Sod/Tazobactam 100 mls @ 100 mls/hr 05/17/22 06:48 05/17/22 06:55 Sod 3.375 gm/ Sodium Chloride IV 05/17/22 07:47 100 mls/hr ONCE STA Administration Lactated Ringer's 1,000 mls @ 1,000 mls/hr 05/17/22 07:20 05/17/22 07:32 Lactated Ringers IV 05/17/22 08:19 1,000 mls/hr BOLUS STA Administration Ketorolac Tromethamine 30 mg 05/17/22 05:50 05/17/22 06:05 Ketorolac Tromethamine 30 Mg/Ml Vial IVP 05/17/22 05:51 30 mg ONCE STA Administration Ondansetron HCl 4 mg 05/17/22 05:50 05/17/22 06:05 Ondansetron Hcl/Pf 4 Mg/2 Ml Sdv IVP 05/17/22 05:51 4 mg ONCE STA Administration Assessment (1) Pyelonephritis: Status: Acute Code(s): N12 - Tubulo-interstitial nephritis, not specified as acute or chronic SNOMED Code(s): 98126140 Assessment: urine and blood culture / IV zosyn Plan Plan: 1.For GI protection - continue protonix 2.For DVT prevention - lovenox 40mg suq daily 3.For hypertension - hold todays meds due to current asymptomatic blood pressure systolic 103 4.For Diabetes - continue trulicity 5.For episodic low asymptomatic sats - CXR , dimer , BNP, Trop 6.Report to Dr. Reyes at shift change
[2022-05-17 17:40] LABS: MAGNESIUM 1.88 mg/dL (1.6-2.3)
[2022-05-17 17:53] LABS: TROPONIN I < 0.012 ng/ml (0.0000-0.120)
[2022-05-18] MEDS: SODIUM CHLORIDE 0.9%-KCL 20 MEQ 1,000 ML IV SCH (02:08)
[2022-05-18 05:21] LABS: BASOPHILS % (AUTO) 0.3 % (0.0-3.0); EOSINOPHILS # (AUTO) 0.3 K/ul (0.0-0.7); EOSINOPHILS % (AUTO) 3.5 % (0.0-7.0); HEMATOCRIT 33.4 % (37.0-47.0); HEMOGLOBIN 10.8 g/dl (12.0-16.0); IMMATURE GRANULOCYTE % (AUTO) 0.4 % (0.0-5.0); LYMPHOCYTES # (AUTO) 0.6 K/uL (0.60-3.4); LYMPHOCYTES % (AUTO) 8.9 (10.0-50.0); MEAN CORPUSCULAR HEMOGLOBIN 28.5 pg (27.0-31.0); MEAN CORPUSCULAR HGB CONC 32.3 (31.8-35.4); MEAN CORPUSCULAR VOLUME 88.1 fl (81.0-99.0); MONOCYTES # (AUTO) 0.5 K/uL (0.4-2.0); MONOCYTES % (AUTO) 6.4 (0-10); NEUTROPHILS # (AUTO) 5.8 K/ul (2.0-6.9); NEUTROPHILS % (AUTO) 80.5 % (42.2-75.2); PLATELET COUNT 196 10^3/uL (140-440); RDW COEFFICIENT OF VARIATION 14.1 % (11.6-14.8); RED BLOOD COUNT 3.79 10^6/ul (4.20-5.40)
[2022-05-18 05:33] LABS: ALANINE AMINOTRANSFERASE 14.3 U/L (0-35); ALBUMIN 3.36 g/dL (3.5-5.0); ALKALINE PHOSPHATASE 66.7 U/L (38-126); ASPARTATE AMINO TRANSFERASE 33.2 U/L (14-36); BILIRUBIN,TOTAL 0.4 mg/dL (0.2-1.3); BLOOD UREA NITROGEN 17.1 mg/dL (7-17); CALCIUM 8.66 mg/dL (8.4-10.2); CARBON DIOXIDE 28.6 mmol/L (22-30.0); CHLORIDE 106.7 mmol/L (98-107); CHOLESTEROL 180.2 mg/dL (0-200); CREATININE 0.82 mg/dL (0.60-1.30); GLUCOSE 113.5 mg/dL (74-106); HDL CHOLESTEROL 33.7 mg/dL (35-80); POTASSIUM 4.14 mmol/L (3.5-5.1); SODIUM 139.6 mmol/L (134.5-145); TOTAL PROTEIN 6.41 g/dL (6.3-8.2); TRIGLYCERIDES 381.3 mg/dL (0-150)
[2022-05-18] MEDS: ZOSYN 3.375 GM 3.375 GM in SODIUM CHLORIDE 100ML 100 ML IV SCH (05:43)
--- NOTE | 2022-05-18 07:41 | DI ---
EXAM: Chest one view, frontal view only. HISTORY: Leukocytosis. COMPARISON: 02/04/2022. FINDINGS: The heart size is normal. There is no pulmonary vascular congestion. The lungs are clear . No pleural effusion or pneumothorax is seen. No acute osseous abnormality is identified. Since t he prior study, there has been no significant interval change. IMPRESSION: No acute cardiopulmonary process.
[2022-05-18 07:44] VITALS: BP 108/72; TEMP 98.2
[2022-05-18] MEDS: MOTRIN PO SCH (08:58)
[2022-05-18] MEDS: LYRICA PO SCH (08:59)
[2022-05-18] MEDS: CRESTOR PO SCH (08:59)
[2022-05-18] MEDS: LOVENOX SUBCUT SCH (09:00)
--- NOTE | 2022-05-18 09:19 | PCM.PROG ---
Date Seen by Provider: 05/18/22 Time Seen by Provider: 08:30 Subjective: Patient feeling much better. Denies abdominal pain and is tolerating PO intake. She does complain of back pain which is chronic. Objective: Vitals: T=98.2 F, P=89, R=16, EN=389/72, SPO2=92 Patient is afebrile. She is alert, comfortable appearing. HEENT: [] Oral mucosa moist Neck: []Supple. Lungs: [] Clear. Breath tones equal. CVS: []RRR Abdomen: []Soft, nontender. No CVA tenderness. Extremities: [] Neurological: [] Skin: [] Lab/Tests/Diagnostic Imaging: [] (1) Pyelonephritis: Status: Acute Code(s): N12 - Tubulo-interstitial nephritis, not specified as acute or chronic SNOMED Code(s): 26731696 Assessment: Patient has defervesced and her WBC is now normal. She feels much better. Plan: Discharge patient on PO ATBX. Follow up with her primary care provider within one week.
--- NOTE | 2022-05-18 09:25 | PCM.DC ---
Final Diagnosis: acute pyelonephritis Physical Exam Appearance: Well-appearing, No pain distress and Obese Ill-appearing: None Pain Distress: None Eyes: Not Examined ENT: Nose normal and Oropharynx normal Neck: Supple Respiratory: Airway patent, Breath sounds clear and Breath sounds equal Cardiovascular: RRR, Pulses normal and No rub GI/: Soft, Nontender, No masses and Bowel sounds normal Musculoskeletal: Normal strength, ROM intact and No edema Skin: Warm, Dry and Normal color Neurological: Motor intact, Alert and Oriented Psychiatric: Affect appropriate and Mood appropriate (1) Pyelonephritis: Status: Acute Code(s): N12 - Tubulo-interstitial nephritis, not specified as acute or chronic SNOMED Code(s): 02983101 Reason for Hospitalization: acute pyelonephritis Prognosis/Condition at Discharge: condition at discharge was good Medications at Discharge: Patient will be discharged on her prior home medications as well as Bactrim. Education Provided to Patient and Family: pyelonephritis Follow-ups: Follow up with your primary care provider in one week. Discharge Disposition: Home Hospital Course: Patient admitted with LLQ abd/left flank pain. She was found to have acute pyelonephritis. Patient was placed on IV fluids and IV Zosyn. She demonstrated dramatic clinical improvement over the next 24 hours. She defervesced and had resolution of her abdominal pain. Patient had normalization of her WBC and tolerated PO intake. Plan: Patient to be discharged on Bactrim.
== END 2022-05-18 10:27 | disposition home or self-care (01) ==
LOC: MEDSURG A 05:08 → ED 05:08 → MEDSURG A 10:10
PROVIDERS: ADMIT Emergency Medicine; ATTEND Surgery
DX: Z51.81 Encounter for therapeutic drug level monitoring; Z79.84 Long term (current) use of oral hypoglycemic drugs; K57.92 Diverticulitis of intestine, part unspecified, without perforation or abscess without bleeding; M50.33 Other cervical disc degeneration, cervicothoracic region; E11.9 Type 2 diabetes mellitus without complications; R11.0 Nausea; Z79.899 Other long term (current) drug therapy; Z20.822 Contact with and (suspected) exposure to COVID-19; N12 Tubulo-interstitial nephritis, not specified as acute or chronic